=== PATIENT | female | born 1990 | race Caucasian/White ===

== ENCOUNTER 2018-06-03 20:01 | Emergency (ER) | payer SELFPAY ==
[~2018-06-03] VITALS: Ht 167.6 cm; Wt 65.8 kg
--- NOTE | 2018-06-03 22:15 | NUR ---
Pt taken to [facility]. Pt reports no changes in condition at this time.
[2018-06-03] MEDS ORDERED: ACETAMINOPHEN 500 MG TAB (TYLENOL) PO STA (22:35)
--- NOTE | 2018-06-03 22:35 | NUR ---
Person with pt came to nurses' station requesting something for pain for the pt. Pt reports taking aleve approximately 4 hours ago. Ella Rivas notified.
[2018-06-03] MEDS ORDERED: HYDROcodone/APAP 7.5 MG/325 MG (LORTAB, LORCET PLUS) TABLET PO STA (22:59)
[2018-06-03] MEDS ORDERED: RX-AMOXICILLIN 500 MG CAP #3 PPK PO STA (22:59)
[2018-06-03] MEDS ORDERED: AMOX500C2 PO (23:25)
--- NOTE | 2018-06-03 23:25 | ED EENT ---
History of Present Illness General Chief Complaint: Dental Problems/Pain Stated Complaint: DENTAL PAIN Nursing Triage Note: pt reports left lower dental pain starting yesterday with severe swelling. History of Present Illness Date Seen by Provider: Jun 04, 2018 Time Seen by Provider: 21:30 Initial Comments 27-year-old female presents for left lower dental pain. She is tearful and has an ice pack on her left cheek. She reports the pain began approximately 24 hours ago. She took 2 Aleve prior to arrival with minimal improvement in her symptoms. She has not seen a dentist for at least 6 months. Timing/Duration: abrupt, yesterday Severity: moderate Location: dental Prearrival Treatment: over the counter meds Associated Symptoms: denies symptoms Allergies and Home Medications Allergies Coded Allergies: No Known Drug Allergies (Unverified , 06/03/18) Home Medications Amoxicillin 500 Mg Capsule, 500 MG PO TID Prescribed by: CAROLYN FINK on 06/03/18 9589 Patient Home Medication List Home Medication List Reviewed: Yes Review of Systems Review of Systems Constitutional: no symptoms reported, see HPI Mouth: see HPI, pain All Other Systems Reviewed Negative Unless Noted: Yes Past Pbvagov-Rpwiqm-Zzeixc Hx Past Med/Social Hx: Reviewed Nursing Past Med/Soc Hx Patient Social History Recent Foreign Travel: No Contact w/Someone Who Travel: No Recent Infectious Disease Expo: No Past Medical History Last Menstrual Period: May 07, 2018 Physical Exam Vital Signs Vital Signs - First Documented 06/03/18 21:09 Temp 98.3 Pulse 108 Resp 20 B/P (MAP) 140/87 (104) Pulse Ox 99 O2 Delivery Room Air Height, Weight, BMI Height: 5'6.00" Weight: 145lbs. oz. 65.806113ql; BMI Method:Stated General Appearance: WD/WN, no apparent distress Ears: bilateral ear auricle normal, bilateral ear canal normal, bilateral ear TM normal Nose: normal inspection; No active bleeding, No discharge Mouth/Throat: pharynx normal, dental tenderness (right lower molars), mandibular swelling, maxillary swelling; No pharynx swelling Neck: non-tender, full range of motion, supple, normal inspection, lymphadenopathy (L) Cardiovascular: normal peripheral pulses, regular rate, rhythm Respiratory: chest non-tender, lungs clear, normal breath sounds Gastrointestinal: normal bowel sounds, non tender, soft Neurologic/Psychiatric: no motor/sensory deficits, alert, normal mood/affect, oriented x 3 Skin: normal color, warm/dry Progress/Results/Core Measures Results/Orders My Orders Orders - CAROLYN FINK Rx-Amoxicillin Capsule (Rx-Polymox Capsu (06/03/18 22:59) Hydrocodone/Apap 7.5/325 Tab (Lortab 7. (06/03/18 22:59) Rx-Hydrocodone/Apap 5-325 Mg (Rx-Vicodin (06/03/18 23:30) Vital Signs/I&O 06/03/18 21:09 Temp 98.3 Pulse 108 Resp 20 B/P (MAP) 140/87 (104) Pulse Ox 99 O2 Delivery Room Air Blood Pressure Mean: 104 Departure Impression Primary Impression: Dental abscess Additional Impression: Pain, dental Disposition: HOME, SELF-CARE Condition: Improved Departure-Patient Inst. Decision time for Depature: 21:15 Referrals: NO,LOCAL PHYSICIAN (PCP/Family) Primary Care Physician Patient Instructions: Tooth Abscess (DC), Dental Pain (DC) Add. Discharge Instructions: Continue to take Aleve 2 tablets twice daily with food. Take the antibiotic as prescribed. Use the hydrocodone for severe pain. Schedule appt with [facility]. Return to emergency department for urgent needs. All discharge instructions reviewed with patient and/or family. Voiced understanding. Scripts Amoxicillin (Amoxicillin) 500 Mg Capsule 500 MG PO TID, #30 CAP 0 Refills Prov: CAROLYN FINK 06/03/18 CAROLYN FINK Jun 03, 2018 23:25
[2018-06-03] MEDS ORDERED: RX-HYDROCODONE/APAP 5/325 MG #4 TAB PK PO PRN (23:30)
[2018-06-03 23:35] VITALS: BP 120/68
== END 2018-06-03 23:41 | disposition home or self-care (01) ==
LOC: ER 20:03
DX: K04.7 Periapical abscess without sinus (principal)